=== PATIENT | female | born 1935 | race Caucasian/White ===

== ENCOUNTER 2019-01-06 14:33 | Inpatient (IN) | payer MEDICARE, OTHER ==
[~2019-01-06] VITALS: Ht 170.2 cm; Wt 49.2 kg
[2019-01-06 14:34] VITALS: BP 149/53
[2019-01-06] MEDS ORDERED: SYNTHROID25 MC1 PO (14:49)
[2019-01-06] MEDS ORDERED: NEURONTIN 300300 M1 PO (14:49)
[2019-01-06] MEDS ORDERED: TRAZODONE 150150 M1 PO (14:50)
[2019-01-06] MEDS ORDERED: ZOCOR20 MG PO (14:50)
[2019-01-06] MEDS ORDERED: POTASSIUM20 PO (14:50)
[2019-01-06] MEDS ORDERED: LISINOPRIL20 MG PO (14:50)
[2019-01-06 18:48] LABS: HEMOGLOBIN 10.5 gm/dL (12.0-15.0); MCH 30.6 pg (26.0-34.0); MCHC 32.9 g/dL (28.0-37.0); MCV 92.8 fL (80.0-100.0); MPV 7.2 fl. (7.2-11.1); NUCLEATED RBCS 0 /100WBC; PLATELET COUNT* 168 thou/uL (150-400); RBC 3.45 mil/uL (4.20-5.00); RDW-CV 13.2 % (10.5-14.5); WBC 12.2 thou/uL (4.0-11.0)
[2019-01-06 18:53] LABS: APTT 25.6 Seconds (25.0-31.3); INR 1.1; PROTIME 10.8 Seconds (9.20-11.50)
[2019-01-06 19:03] LABS: CALCIUM 8.5 mg/dL (8.5-10.1); CREATININE 0.9 mg/dL (0.6-1.3); POTASSIUM 3.8 mmol/L (3.5-5.1)
[2019-01-06 19:06] LABS: ABSOLUTE LYMPHOCYTES 0.9 thou/uL (0.8-5.3); ABSOLUTE MONOCYTES 0.4 thou/uL (0.0-1.2)
[2019-01-06 19:07] LABS: PLATELET ESTIMATE ADEQUATE
[2019-01-06 19:08] LABS: ALBUMIN 3.6 g/dL (3.4-5.0); TOTAL BILIRUBIN 0.4 mg/dL (<0.1-1.0); TOTAL PROTEIN 7.1 g/dL (6.4-8.2)
[2019-01-06 19:35] VITALS: BP 154/54
[2019-01-06 20:00] VITALS: BP 171/65
[2019-01-06] MEDS ORDERED: ASPIR 8181 M1 PO (20:08)
[2019-01-07 04:00] VITALS: BP 129/68
--- NOTE | 2019-01-07 06:00 | NUR ---
REPORT RECEIVED FROM ED. PT ARRIVED TO ROOM PER CART @ 1999. COMPLETED ADMISSION HISTORY WITH DAUGHTER. PT CHOKING/COUGHING WITH LIQUIDS- COUGHING SO HARD VOMITING @ TIMES. PT STATES THIS IS "NORMAL" FOR HER. INSISTED ON CLEAR LIQUIDS. GAVE PT MULTIPLE CHOICES OF THICK LIQUIDS. FENTANYL GIVEN FOR PAIN. PT ABLE TO GET SOME REST.
[2019-01-07 08:37] LABS: URINE BLOOD 2+ (Negative); URINE CLARITY CLEAR; URINE COLOR YELLOW; URINE GLUCOSE-RANDOM NEGATIVE (Negative); URINE KETONES NEGATIVE (Negative); URINE LEUKOCYTES-REFLEX 1+ (Negative); URINE NITRITE-REFLEX NEGATIVE (Negative); URINE PROTEIN 1+ (Negative); URINE SPECIFIC GRAVITY >= 1.030 (1.005-1.030)
[2019-01-07 08:42] LABS: URINE BILIRUBIN 1+ (Negative)
[2019-01-07 08:44] LABS: CASTS None Seen /LPF (None Seen); CRYSTALS None Seen /LPF (None Seen); ICTOTEST (BILI CONFIRMATORY) Negative (Negative); SQUAMOUS 0-3 Few /LPF (0-3); URINE RBC 0-2 Rare /HPF (0-2); URINE WBC-REFLEX 6-15 Few /HPF (0-5)
[2019-01-07] MEDS ORDERED: CELEXA10 MG PO (10:26)
[2019-01-07 11:25] VITALS: BP 133/39
--- NOTE | 2019-01-07 11:30 | NUR ---
MET WITH PT TO DISCUSS HOME SITUATION/DC PLANNING. PT LIVES WITH DTR AND MARYA. SHE IS NORMALLY INDEPENDENT AND ACTIVE. HAS WALKER AND CANE BUT STATES DOESN'T USE THEM. SHE HELPS AROUND THE HOUSE. DOESN'T DRIVE. PT HAS HAD HH AND BEEN TO SNF AT [facility], [place], [facility] IN PAST, WOULD BE AGREEABLE TO THAT AGAIN IF RECOMMENDED. NO FAMILY PRESENT AT THIS TIME. WILL FOLLOW AND AWAIT THERAPY AHMET
[2019-01-07 20:00] VITALS: BP 175/72
[2019-01-08 04:00] VITALS: BP 141/61
[2019-01-08 04:40] LABS: ABSOLUTE BASOPHILS 0.1 thou/uL (0.0-0.2); ABSOLUTE EOSINOPHILS 0.1 thou/uL (0.0-0.7); ABSOLUTE LYMPHOCYTES 0.8 thou/uL (0.8-5.3); ABSOLUTE MONOCYTES 0.7 thou/uL (0.0-1.2); ABSOLUTE NEUTROPHILS 7.2 thou/uL (1.6-8.1); BASOPHILS 0.8 %; HEMATOCRIT 28.5 % (37.0-47.0); HEMOGLOBIN 9.6 gm/dL (12.0-15.0); LYMPHOCYTES 9.1 %; MCH 31.2 pg (26.0-34.0); MCHC 33.6 g/dL (28.0-37.0); MONOCYTES 8.2 %; MPV 7.5 fl. (7.2-11.1); NUCLEATED RBCS 0 /100WBC; PLATELET COUNT* 130 thou/uL (150-400); POLYS 80.9 %; RBC 3.07 mil/uL (4.20-5.00); RDW-CV 13.6 % (10.5-14.5); WBC 8.9 thou/uL (4.0-11.0)
[2019-01-08 05:05] LABS: CALCIUM 8.1 mg/dL (8.5-10.1); CREATININE 0.9 mg/dL (0.6-1.3); POTASSIUM 4.5 mmol/L (3.5-5.1)
[2019-01-08 08:08] VITALS: BP 103/38
--- NOTE | 2019-01-08 09:30 | NUR ---
ASSUMED CARE AFTER REPORT APPROX 0730. OX4, ABLE TO EXPRESS NEEDS TO STAFF. MED/SURG STATUS. O2 SATS >92% RA. FREQUENT REPOSITIONING TO MAINTAIN SKIN INTEGRITY. EDUCATION GIVEN TO PATIENT R/T REPOSITIONING IMPORTANCE, EXPLAINING ETIOLOGY OF PRESSURE WOUNDS. VERBALIZED AGREEMENT TO PARTICIPATE IN TURNS. [place] TO DEPENDENT DRAINAGE, CLEAR, YELLOW URINE. CALL LIGHT IN REACH. HOURLY ROUNDING FOR SAFETY AND PATIENT NEEDS.
[2019-01-08 11:48] VITALS: BP 152/54
--- NOTE | 2019-01-08 13:36 | NUR ---
CONTINUE TO FOLLOW, MET WITH DTR/COLETTE. DISCUSSED SNF AGAIN. SHE STATED THAT PT AND FAMILY ARE INTERESTED IN EITHER [facility] OR [facility]. CALLED AND FAXED REFERRAL TO BOTH FACILITIES. RECEIVED CALL BACK FROM [facility]. THEY CAN ACCEPT PT AND COULD TAKE ON W/W CONTACT FOR W/E THERE WOULD BE [phone] CELL. AWAIT TO HEAR BACK FROM [facility]. UPDATED DTR
[2019-01-08 15:50] VITALS: BP 102/62
--- NOTE | 2019-01-08 17:52 | EKG ---
[place] [address] ELECTROCARDIOGRAM REPORT Name: ROSETTE MORALES Room: [address] IN M.R.#: [id number] Admission: 01/06/19 Attend Phys: Roc Robin MD Discharge: Date of : 33 Report #: [id number] THIS REPORT FOR: //name// [facility] ED Test Date: 2019-01-06 Test Time: 18:03:19 Pat Name: ROSETTE MORALES Department: Room: [facility] Gender: F [employer] Operator: : [id number] Requested By: Flakita Ratliff Order Number: [id number] MD: Jagdish iHcks Measurements Intervals [place] Rate: 62 P: 82 MA: 155 QRS: 20 QRSD: 76 T: 89 QT: 623 QTc: 633 Interpretive Statements Sinus rhythm Borderline low voltage, extremity leads Consider left ventricular hypertrophy Nonspecific T abnormalities, lateral leads Prolonged QT interval No previous ECG available for comparison Electronically Signed On 01-08-2019 17:52:35 CDT by Jagdish Hicks [email or web address] <ELECTRONICALLY SIGNED> By: Tressa Hicks MD, [facility] 01/08/19 1752 02 180 Tressa Hicks MD, [facility] /EPI
[2019-01-08 20:00] VITALS: BP 129/41
[2019-01-09 04:00] VITALS: BP 118/64
--- NOTE | 2019-01-09 05:46 | NUR ---
PT GIVEN PRN PAIN MEDICATION AT BEDTIME FOR BACK/NECK. NO C/O HIP PAIN. REMAINS POORLY MOTIVATED TO HELP WITH TURNING HERSELF OR PROGRESSING TOWARDS GOALS. CALL LIGHT IN REACH. HOURLY ROUNDING FOR SAFETY.
[2019-01-09] MEDS ORDERED: TYLENOL325 MG PO (07:50)
[2019-01-09] MEDS ORDERED: HYDROCODON-ACE1 EAC7 PO (07:50)
[2019-01-09 08:42] VITALS: BP 111/58
--- NOTE | 2019-01-09 09:00 | NUR ---
ASSUMED CARE AFTER REPORT APPROX 0730. ORIENT X 4, ABLE TO EXPRESS NEEDS TO STAFF. SLOAN/SURG STATUS. O2 SATS >92% RA. FREQUENT REPOSITIONING TO MAINTAIN SKIN INTEGRITY. EDUCATION GIVEN R/T PRESSURE WOUNDS AND PLAN OF CARE TO TURN EVERY 2 HOURS AND PRN. PATIENT AGREEABLE TO PLAN OF CARE. [place] CATHETER DRANING CLR, YELLOW URINE, DEPENDENT DRNG. CALL LIGHT WITHIN REACH. HOURLY ROUNDING FOR SAFETY AND PATIENT NEEDS.
[2019-01-09 11:15] VITALS: BP 110/48
--- NOTE | 2019-01-09 11:30 | NUR ---
ORDERS FOR DC TO SNF, MET WITH PT/DTR. THEY CHOSE TO GO TO [facility]. CALLED AND UPDATED BOTH [facility] AND [facility]. [facility] WILL ACCEPT TODAY. THEY SET UP W/C VAN FOR 1PM. DTR AND PT AWARE. RN HAS NUMBER TO CALL REPORT. FAXED ORDERS. CHART COPIED.
--- NOTE | 2019-01-09 12:21 | NUR ---
PATIENT WITH COMPLETE DC ORDER TO SNF. DC INSTRUCTIONS AND MED LIST PROCESSED AND INCLUDED IN SNF PACKET THAT TRANSPORTER WILL TAKE TO FACILITY. PATIENT IN POSSESSION OF ALL BELONGINGS. PATIENT TO BE TRANSPORTED VIA WC VAN TO [facility]. REPORT CALLED TO HAFSA FROM [facility] AT 1152.
[2019-01-09 12:49] VITALS: BP 90/40
== END 2019-01-09 14:25 | DRG 500 ==
LOC: M.ERS 14:33 → M.2W 18:14 → M.TBA-ER 18:14 → M.2W 20:00
PROVIDERS: Internal Medicine; Nurse Practitioner Family; ADMIT Internal Medicine
PROC: 0JQ00ZZ Repair Scalp Subcutaneous Tissue and Fascia, Open Approach (ICD-10-PCS; principal; 2019-01-06)
DX: M80.052A Age-related osteoporosis with current pathological fracture, left femur, initial encounter for fracture (principal); E43 Unspecified severe protein-calorie malnutrition; Z68.1 Body mass index [BMI] 19.9 or less, adult; I10 Essential (primary) hypertension; G62.9 Polyneuropathy, unspecified; F03.90 Unspecified dementia, unspecified severity, without behavioral disturbance, psychotic disturbance, mood disturbance, and anxiety; S01.01XA Laceration without foreign body of scalp, initial encounter; Z66 Do not resuscitate; Z85.818 Personal history of malignant neoplasm of other sites of lip, oral cavity, and pharynx; W18.39XA Other fall on same level, initial encounter; Y93.01 Activity, walking, marching and hiking; Y92.89 Other specified places as the place of occurrence of the external cause; Y99.8 Other external cause status; Z85.3 Personal history of malignant neoplasm of breast; Z79.899 Other long term (current) drug therapy; Z79.82 Long term (current) use of aspirin